=== PATIENT | female | born 1935 | race Caucasian/White ===

== ENCOUNTER 2025-09-22 11:18 | Emergency (ER) | payer MEDICARE ==
[~2025-09-22] VITALS: Ht 160 cm; Wt 55.9 kg
[~2025-09-22 11:18] MED LIST: ACET65TA; ASPI325T; HYDR25TA6; MILKSUS; THERGRAN; [UNRECOGNIZED DRUG - CODE]
[2025-09-22 13:18] VITALS: BP 111/55; TEMP 97; O2SAT 98
== END 2025-09-22 13:20 | disposition home or self-care (01) ==
LOC: M ED 11:18
DX: M25.511 Pain in right shoulder (principal); M19.011 Primary osteoarthritis, right shoulder; E78.5 Hyperlipidemia, unspecified; Z86.73 Personal history of transient ischemic attack (TIA), and cerebral infarction without residual deficits; Z79.1 Long term (current) use of non-steroidal anti-inflammatories (NSAID); Z79.82 Long term (current) use of aspirin; Z79.899 Other long term (current) drug therapy